=== PATIENT | female | born 1950 | race Caucasian/White ===

== ENCOUNTER 2021-06-03 22:41 | Inpatient (IN) | payer OTHER ==
[~2021-06-03] VITALS: Ht 154.9 cm; Wt 70.3 kg
[2021-06-04 00:14] LABS: Basophils # (auto) 0.1 10 ^3/uL (0-0.2); Hemoglobin 15.8 g/dL (12.2-16.2); Monocytes # (auto) 0.9 10 ^3/uL (0-1.3); Neutrophils # (auto) 9.5 10 ^3/uL (1.6-8.6); Red Cell Distribution Width 13.6 % (11.8-14.3)
[2021-06-04 00:16] LABS: Basophils % (auto) 0.7 % (0.0-2.0); Eosinophils # (auto) 0.3 10 ^3/uL (0-0.8); Hematocrit 45.9 % (36.0-46.0); Lymphocytes # (auto) 3.2 10 ^3/uL (0.4-5.4); Lymphocytes % (auto) 23.2 % (10.0-50.0); Mean Corpuscular Hemoglobin 31.2 pg (28.0-32.0); Mean Corpuscular Hgb Conc. 34.5 g/dL (32.0-36.0); Mean Corpuscular Volume 90.4 fL (80.0-100.0); Monocytes % (auto) 6.4 % (0.0-12.0); Neutrophils % (auto) 67.7 % (37.0-80.0); Red Blood Cells 5.07 10^6/uL (4.0-5.20)
[2021-06-04 00:28] LABS: INR 0.95 (0.9-1.15)
[2021-06-04 00:37] LABS: BUN/Creatinine Ratio 15.4; Calcium 8.8 mg/dL (8.5-10.1); Magnesium 2.5 mg/dL (1.6-2.6); Potassium 3.5 mmol/L (3.5-5.1)
[2021-06-04 00:42] LABS: Bilirubin, Total 0.7 mg/dL (0.2-1.0); Total Protein 7.6 g/dL (6.4-8.2)
[2021-06-04] MEDS ORDERED: ASPirin 325 MG TAB PO ONE (01:00)
[2021-06-04] MEDS ORDERED: ENOXAPARIN SOD 100 MG/1 ML SYRINGE SC ONE (01:00)
[2021-06-04] MEDS ORDERED: ACETAMINOPHEN 325 MG TAB PO PRN (04:00)
[2021-06-04] MEDS ORDERED: NITROGLYCERIN 0.4 MG SL TAB SL PRN (04:00)
[2021-06-04] MEDS ORDERED: MORPHINE SULFATE INJECTION 2 MG/2 ML SYRG IV PRN (04:00)
[2021-06-04] MEDS ORDERED: ONDANSETRON HCL 4 MG/2 ML VIAL IV PRN (04:00)
[2021-06-04] MEDS ORDERED: HYDROcodone-ACET 5/325MG TAB PO PRN (04:00)
[2021-06-04] MEDS ORDERED: DOCUSATE SOD 100 MG CAP PO PRN (04:00)
[2021-06-04] MEDS ORDERED: POTASSIUM CHL 20 Meq TABLET PO ONE (04:30)
[2021-06-04 04:58] LABS: Basophils # (auto) 0.1 10 ^3/uL (0-0.2); Basophils % (auto) 0.4 % (0.0-2.0); Eosinophils # (auto) 0.1 10 ^3/uL (0-0.8); Hematocrit 42.3 % (36.0-46.0); Hemoglobin 14.5 g/dL (12.2-16.2); Lymphocytes # (auto) 2.4 10 ^3/uL (0.4-5.4); Lymphocytes % (auto) 16.2 % (10.0-50.0); Mean Corpuscular Hemoglobin 30.8 pg (28.0-32.0); Mean Corpuscular Hgb Conc. 34.3 g/dL (32.0-36.0); Mean Corpuscular Volume 89.8 fL (80.0-100.0); Monocytes # (auto) 0.7 10 ^3/uL (0-1.3); Monocytes % (auto) 4.9 % (0.0-12.0); Neutrophils # (auto) 11.2 10 ^3/uL (1.6-8.6); Neutrophils % (auto) 77.5 % (37.0-80.0); Red Blood Cells 4.71 10^6/uL (4.0-5.20); Red Cell Distribution Width 13.5 % (11.8-14.3); White Blood Cell 14.5 10^3/uL (4.4-10.8)
[2021-06-04 05:17] LABS: Potassium 3.8 mmol/L (3.5-5.1)
[2021-06-04 05:30] LABS: Albumin 3.4 g/dL (3.4-5.0); BUN/Creatinine Ratio 19.2; Calcium 8.6 mg/dL (8.5-10.1); Total Protein 6.8 g/dL (6.4-8.2)
[2021-06-04] MEDS: SODIUM CHLOR 0.9% PF (SALINE LOCK) 10ML VIAL/SYR IV SCH ×3 (06:55→21:56)
[2021-06-04] MEDS ORDERED: ASPirin 81 mg TAB PO SCH (10:00)
[2021-06-04] MEDS ORDERED: ENOXAPARIN SOD 40 MG/0.4 ML SYRINGE SC SCH (10:00)
[2021-06-04] MEDS: ZINC SULFATE 220mg CAP or TAB PO SCH (10:42)
[2021-06-04] MEDS: FAMOTIDINE (10MG/ML) 2ML VL IV SCH ×2 (10:42→21:56)
[2021-06-04] MEDS: levoFLOXacin 500MG 100 ML IV SCH (10:43)
[2021-06-04] MEDS: ASCORBIC ACID 500 MG TAB PO SCH ×2 (10:43→21:56)
[2021-06-04] MEDS: MULTIPLE VITAMIN TAB PO SCH (10:45)
[2021-06-04] MEDS ORDERED: ATORVASTATIN 20 MG TAB PO ONE (11:45)
[2021-06-04] MEDS ORDERED: CLOPIDOGREL BISULFATE 75 MG TAB PO ONE (11:45)
[2021-06-04 21:00] VITALS: BP 120/73
[2021-06-04] MEDS: ENOXAPARIN SOD 60 MG/0.6 ML SYRINGE SC SCH (21:56)
[2021-06-04 22:00] VITALS: BP 120/73
[2021-06-04] MEDS ORDERED: BUPR150T18 PO (22:45)
[2021-06-04] MEDS ORDERED: LISI-716 PO (22:45)
[2021-06-04] MEDS ORDERED: ZOLP12.569 PO (22:45)
[2021-06-04] MEDS ORDERED: DEXM1CAP PO (22:45)
[2021-06-04] MEDS ORDERED: TEMAZEPAM 15 MG CAP PO ONE (22:45)
[2021-06-05 05:00] VITALS: BP 91/65
[2021-06-05] MEDS: SODIUM CHLOR 0.9% PF (SALINE LOCK) 10ML VIAL/SYR IV SCH ×3 (06:19→22:48)
[2021-06-05 06:35] LABS: Albumin 2.9 g/dL (3.4-5.0); Calcium 8.2 mg/dL (8.5-10.1); Potassium 3.6 mmol/L (3.5-5.1)
[2021-06-05 06:40] LABS: Bilirubin, Total 0.8 mg/dL (0.2-1.0)
[2021-06-05 06:50] LABS: Basophils # (auto) 0.1 10 ^3/uL (0-0.2); Basophils % (auto) 0.8 % (0.0-2.0); Eosinophils # (auto) 0.3 10 ^3/uL (0-0.8); Eosinophils % (auto) 3.8 % (0.0-7.0); Hematocrit 40.1 % (36.0-46.0); Hemoglobin 13.7 g/dL (12.2-16.2); Lymphocytes # (auto) 3.5 10 ^3/uL (0.4-5.4); Mean Corpuscular Hgb Conc. 34.1 g/dL (32.0-36.0); Mean Corpuscular Volume 90.8 fL (80.0-100.0); Monocytes # (auto) 0.6 10 ^3/uL (0-1.3); Monocytes % (auto) 7.6 % (0.0-12.0); Neutrophils % (auto) 46.8 % (37.0-80.0); Red Blood Cells 4.41 10^6/uL (4.0-5.20); Red Cell Distribution Width 13.3 % (11.8-14.3); White Blood Cell 8.4 10^3/uL (4.4-10.8)
[2021-06-05 09:00] VITALS: BP 105/62
[2021-06-05] MEDS: levoFLOXacin 500MG 100 ML IV SCH (10:00)
[2021-06-05] MEDS: ENOXAPARIN SOD 60 MG/0.6 ML SYRINGE SC SCH (10:00)
[2021-06-05] MEDS: FAMOTIDINE (10MG/ML) 2ML VL IV SCH ×2 (10:21→22:48)
[2021-06-05] MEDS: ZINC SULFATE 220mg CAP or TAB PO SCH (10:22)
[2021-06-05] MEDS: ASCORBIC ACID 500 MG TAB PO SCH (10:22)
[2021-06-05] MEDS: ASPirin 81 mg TAB PO SCH (10:22)
[2021-06-05] MEDS: MULTIPLE VITAMIN TAB PO SCH (10:22)
[2021-06-05 12:43] VITALS: BP 103/71
[2021-06-05] MEDS ORDERED: LIDOCAINE 2%HCL (LOCAL ANESTH.) INJ 20ML MDV ONE (13:35)
[2021-06-05] MEDS ORDERED: MIDAZOLAM HCL 2MG/2ML 2ml VIAL (1mg/ml) ONE (13:45)
[2021-06-05] MEDS ORDERED: SODIUM CHL 0.9% 0 ML ONE (13:45)
[2021-06-05] MEDS ORDERED: fentaNYL CITRATE 100 MCG/2 ML VL ONE (13:45)
[2021-06-05] MEDS ORDERED: ANGIOMAX 250 MG VIAL IV ONE (13:45)
[2021-06-05 17:00] VITALS: BP 134/77
[2021-06-05 22:00] VITALS: BP 133/81
[2021-06-06] MEDS ORDERED: TEMAZEPAM 15 MG CAP PO PRN (00:30)
[2021-06-06 05:00] VITALS: BP 91/64
[2021-06-06 06:08] LABS: Basophils # (auto) 0 10 ^3/uL (0-0.2); Basophils % (auto) 0.6 % (0.0-2.0); Eosinophils # (auto) 0.2 10 ^3/uL (0-0.8); Eosinophils % (auto) 2.3 % (0.0-7.0); Hematocrit 40.1 % (36.0-46.0); Hemoglobin 13.7 g/dL (12.2-16.2); Lymphocytes # (auto) 3.1 10 ^3/uL (0.4-5.4); Lymphocytes % (auto) 34.7 % (10.0-50.0); Mean Corpuscular Hemoglobin 30.9 pg (28.0-32.0); Mean Corpuscular Hgb Conc. 34.1 g/dL (32.0-36.0); Mean Corpuscular Volume 90.4 fL (80.0-100.0); Monocytes # (auto) 0.7 10 ^3/uL (0-1.3); Monocytes % (auto) 8.1 % (0.0-12.0); Neutrophils # (auto) 4.9 10 ^3/uL (1.6-8.6); Neutrophils % (auto) 54.3 % (37.0-80.0); Red Blood Cells 4.44 10^6/uL (4.0-5.20); Red Cell Distribution Width 13.3 % (11.8-14.3)
[2021-06-06 06:22] LABS: Potassium 3.6 mmol/L (3.5-5.1)
[2021-06-06 06:27] LABS: BUN/Creatinine Ratio 17.4; Calcium 8.3 mg/dL (8.5-10.1)
[2021-06-06] MEDS: SODIUM CHLOR 0.9% PF (SALINE LOCK) 10ML VIAL/SYR IV SCH ×2 (07:23→14:00)
[2021-06-06 09:00] VITALS: BP 90/54
[2021-06-06] MEDS: levoFLOXacin 500MG 100 ML IV SCH (09:49)
[2021-06-06] MEDS: MULTIPLE VITAMIN TAB PO SCH (09:50)
[2021-06-06] MEDS: ASPirin 81 mg TAB PO SCH (09:50)
[2021-06-06] MEDS: FAMOTIDINE (10MG/ML) 2ML VL IV SCH (09:50)
[2021-06-06 12:45] VITALS: BP 130/64
[2021-06-06] MEDS ORDERED: ASPI-231 PO (13:10)
[2021-06-06] MEDS ORDERED: LEVO500T31 PO (13:31)
[2021-06-06 14:19] VITALS: BP 119/75
[2021-06-06 17:00] VITALS: BP 126/77
== END 2021-06-06 17:45 | disposition home or self-care (01) | DRG 281 ==
LOC: ER 22:41 → TELE 06-04 03:55 → TELE-WESTW 06-04 21:00
PROVIDERS: ADMIT Nurse Practitioner Family; ATTEND Internal Medicine Nephrology
PROC: B2111ZZ Fluoroscopy of Multiple Coronary Arteries using Low Osmolar Contrast (ICD-10-PCS; principal; 2021-06-05)
PROC: B2151ZZ Fluoroscopy of Left Heart using Low Osmolar Contrast (ICD-10-PCS; 2021-06-05)
DX: R07.9 Chest pain, unspecified (principal); I21.A1 Myocardial infarction type 2; R65.10 Systemic inflammatory response syndrome (SIRS) of non-infectious origin without acute organ dysfunction; D47.3 Essential (hemorrhagic) thrombocythemia; I10 Essential (primary) hypertension; Z20.822 Contact with and (suspected) exposure to COVID-19; F90.9 Attention-deficit hyperactivity disorder, unspecified type; F32.9 Major depressive disorder, single episode, unspecified; F41.9 Anxiety disorder, unspecified; Z88.8 Allergy status to other drugs, medicaments and biological substances
CPT/HCPCS: 36415; 71045; 80048; 80053; 83735; 83880; 84443; 84484; 85025; 85379; 85610; 86850; 86900; 86901; 87040; 87426; 93005; 93306; 93458; 96365; 96372; 96375; 99152; G0378; J1956; J2250; J2405; J3490